=== PATIENT | female | born 1945 | race Caucasian/White ===

== ENCOUNTER → 2016-11-19 | Outpatient (REF) | payer MEDICARE, OTHER | LOC: M SFHCLERA 08:52 | PROVIDERS: ATTEND Physician Assistant | DX: I10 Essential (primary) hypertension (principal); E78.2 Mixed hyperlipidemia; E03.9 Hypothyroidism, unspecified; E55.9 Vitamin D deficiency, unspecified ==

== ENCOUNTER → 2016-11-25 | Outpatient (REF) | payer MEDICARE, OTHER ==
[2016-11-25 11:58] LABS: MEAN CORPUSCULAR HEMOGLOBIN 31.3 pg (27.0-33.0); MEAN CORPUSCULAR HGB CONC 33.7 g/dl (32.0-36.5); MEAN CORPUSCULAR VOLUME 92.9 fl (80.0-96.0); RED CELL DISTRIBUTION WIDTH 12.3 % (11.5-14.5); WHITE BLOOD COUNT 6.4 K/mm3 (4.0-10.0)
[2016-11-25 12:28] LABS: ALBUMIN 3.8 GM/DL (3.2-5.2); ALBUMIN/GLOBULIN RATIO 1.27 (1.00-1.93); ALKALINE PHOSPHATASE 81 U/L (45-117); ALT/SGPT 31 U/L (12-78); ANION GAP 5 MEQ/L (8-16); AST/SGOT 24 U/L (15-37); BILIRUBIN,TOTAL 0.9 MG/DL (0.2-1.0); BLOOD UREA NITROGEN 20 MG/DL (7-18); CALCIUM LEVEL 9.2 MG/DL (8.8-10.2); CARBON DIOXIDE LEVEL 31 MEQ/L (21-32); CHLORIDE LEVEL 104 MEQ/L (98-107); CHOLESTEROL LEVEL 146 MG/DL (<200); CREATININE FOR GFR 0.74 MG/DL (0.55-1.02); GLOMERULAR FILTRATION RATE > 60.0 (>39); GLUCOSE, FASTING 100 MG/DL (83-110); SODIUM LEVEL 140 MEQ/L (136-145); TOTAL PROTEIN 6.8 GM/DL (6.4-8.2); TRIGLYCERIDES LEVEL 84 MG/DL (<150)
== END ==
LOC: M SFHCLERA 07:54
PROVIDERS: ATTEND Physician Assistant
DX: E78.2 Mixed hyperlipidemia (principal); I10 Essential (primary) hypertension; E03.9 Hypothyroidism, unspecified; E55.9 Vitamin D deficiency, unspecified

== ENCOUNTER → 2017-05-12 | Outpatient (REF) | payer MEDICARE, OTHER ==
[2017-05-12 11:38] LABS: ALBUMIN/GLOBULIN RATIO 1.18 (1.00-1.93); ALKALINE PHOSPHATASE 85 U/L (45-117); ALT/SGPT 26 U/L (12-78); ANION GAP 8 MEQ/L (8-16); AST/SGOT 18 U/L (7-37); BILIRUBIN,TOTAL 1.2 MG/DL (0.2-1.0); BLOOD UREA NITROGEN 17 MG/DL (7-18); CALCIUM LEVEL 9.1 MG/DL (8.8-10.2); CARBON DIOXIDE LEVEL 29 MEQ/L (21-32); CHLORIDE LEVEL 103 MEQ/L (98-107); CHOLESTEROL LEVEL 160 MG/DL (<200); CREATININE FOR GFR 0.74 MG/DL (0.55-1.02); GLOMERULAR FILTRATION RATE > 60.0 (>39); GLUCOSE, FASTING 113 MG/DL (83-110); POTASSIUM SERUM 4.3 MEQ/L (3.5-5.1); SODIUM LEVEL 140 MEQ/L (136-145); TOTAL PROTEIN 7.4 GM/DL (6.4-8.2); TRIGLYCERIDES LEVEL 93 MG/DL (<150)
== END ==
LOC: M SFHCLERA 09:30
PROVIDERS: ATTEND Physician Assistant
DX: E78.2 Mixed hyperlipidemia (principal); I10 Essential (primary) hypertension; E03.9 Hypothyroidism, unspecified

== ENCOUNTER → 2017-06-23 | Outpatient (REF) | payer MEDICARE, OTHER | LOC: M SFHCLERA 09:53 | DX: E03.9 Hypothyroidism, unspecified (principal) | CPT/HCPCS: 84443 ==

== ENCOUNTER → 2017-11-23 | Outpatient (REF) | payer MEDICARE, OTHER | LOC: M SFHCLERA 08:13 | DX: E03.9 Hypothyroidism, unspecified (principal) | CPT/HCPCS: 84443 ==

== ENCOUNTER → 2018-01-14 | Outpatient (REF) | payer MEDICARE, OTHER ==
[2018-01-14 17:30] LABS: ALBUMIN 3.8 GM/DL (3.2-5.2); ALBUMIN/GLOBULIN RATIO 1.09 (1.00-1.93); ALKALINE PHOSPHATASE 79 U/L (45-117); ALT/SGPT 22 U/L (12-78); ANION GAP 6 MEQ/L (8-16); AST/SGOT 18 U/L (7-37); BILIRUBIN,TOTAL 0.9 MG/DL (0.2-1.0); BLOOD UREA NITROGEN 15 MG/DL (7-18); CALCIUM LEVEL 8.9 MG/DL (8.8-10.2); CARBON DIOXIDE LEVEL 30 MEQ/L (21-32); CHLORIDE LEVEL 102 MEQ/L (98-107); CHOLESTEROL LEVEL 136 MG/DL (<200); CHOLESTEROL RISK RATIO 2.158 (<5); CREATININE FOR GFR 0.78 MG/DL (0.55-1.30); FREE T4 1.42 NG/DL (0.76-1.46); GLOMERULAR FILTRATION RATE > 60.0 (>39); GLUCOSE, FASTING 99 MG/DL (70-100); HDL CHOLESTEROL 63 MG/DL (>40); LDL CHOLESTEROL 51.2 MG/DL (<100); NON-HDL-C 73 MG/DL; POTASSIUM SERUM 4.2 MEQ/L (3.5-5.1); SODIUM LEVEL 138 MEQ/L (136-145); TOTAL PROTEIN 7.3 GM/DL (6.4-8.2); TRIGLYCERIDES LEVEL 109 MG/DL (<150)
== END ==
LOC: M SFHCLUC 16:09
DX: E78.2 Mixed hyperlipidemia (principal); E03.9 Hypothyroidism, unspecified
CPT/HCPCS: 84443

== ENCOUNTER → 2018-04-18 | Outpatient (CLI) | payer MEDICARE, OTHER | LOC: M RAD 07:44 | DX: R41.3 Other amnesia (principal); I67.81 Acute cerebrovascular insufficiency; G31.9 Degenerative disease of nervous system, unspecified | CPT/HCPCS: 70551 ==

== ENCOUNTER → 2018-05-03 | Outpatient (REF) | payer MEDICARE, OTHER ==
[2018-05-03 12:29] LABS: FREE T4 1.82 NG/DL (0.76-1.46); THYROID STIMULATING HORMONE 0.567 uIU/ML (0.358-3.740)
[2018-05-03 12:55] LABS: VITAMIN B12 LEVEL 466 PG/ML (247-911)
== END ==
LOC: M SFHCLERA 09:45
DX: E03.9 Hypothyroidism, unspecified (principal)
CPT/HCPCS: 84443

== ENCOUNTER → 2018-07-14 | Outpatient (CLI) | payer MEDICARE, OTHER ==
[2018-07-14 16:48] LABS: BASO # 0.1 10^3/uL (0.0-0.2); BASO % 0.9 % (0.0-1.0); EOS # 0.1 10^3/uL (0.0-0.50); EOS % 1.6 % (0.0-3.0); HEMATOCRIT 43.5 % (36.0-47.0); HEMOGLOBIN 14.4 g/dl (12.0-15.5); LYMPH # 2.3 10^3/uL (1.5-4.5); MEAN CORPUSCULAR HEMOGLOBIN 30.3 pg (27.0-33.0); MEAN CORPUSCULAR HGB CONC 33.1 g/dl (32.0-36.5); MEAN CORPUSCULAR VOLUME 91.4 fl (80.0-96.0); MONO # 0.7 10^3/uL (0.0-0.8); MONO % 10.6 % (0.0-5.0); NEUTROPHILS # 3.6 10^3/uL (1.8-7.7); NEUTROPHILS % 52.3 % (36.0-66.0); PLATELET COUNT, AUTOMATED 224 10^3/uL (150-450); RED BLOOD COUNT 4.76 10^6/uL (4.00-5.40); WHITE BLOOD COUNT 6.8 10^3/uL (4.0-10.0)
[2018-07-14 17:02] LABS: ALT/SGPT 19 U/L (12-78); BLOOD UREA NITROGEN 18 MG/DL (7-18); CALCIUM LEVEL 9.5 MG/DL (8.8-10.2); CARBON DIOXIDE LEVEL 29 MEQ/L (21-32); CHLORIDE LEVEL 102 MEQ/L (98-107); CREATININE FOR GFR 0.66 MG/DL (0.55-1.30); GLOMERULAR FILTRATION RATE > 60.0 (>39); GLUCOSE, FASTING 111 MG/DL (70-100); POTASSIUM SERUM 4.3 MEQ/L (3.5-5.1); RHEUMATOID FACTOR QUANT < 10.0 IU/ML (<15.0); SODIUM LEVEL 139 MEQ/L (136-145); THYROID STIMULATING HORMONE 0.054 uIU/ML (0.358-3.740)
[2018-07-14 17:31] LABS: ERYTHROCYTE SEDIMENTATION RATE 9 mm/hr (0-30)
[2018-07-14 18:16] LABS: FOLATE 9.6 NG/ML (>5.4); VITAMIN B12 LEVEL 550 PG/ML (247-911)
[2018-07-20 07:00] LABS: ALBUMIN 4.08 GM/DL (3.29-5.55); ALBUMIN % 58.3 % (55.8-66.1); ALPHA-1-GLOBULIN % 4.2 % (2.9-4.9); ALPHA-1-GLOBULINS 0.29 GM/DL (0.17-0.41); ALPHA-2-GLOBULINS 0.75 GM/DL (0.42-0.99); ALPHA-2-GLOBULINS % 10.7 % (7.1-11.8); BETA-1-GLOBULINS 0.41 GM/DL (0.28-0.60); BETA-1-GLOBULINS % 5.9 % (4.7-7.2); BETA-2-GLOBULINS 0.38 GM/DL (0.19-0.55); BETA-2-GLOBULINS % 5.4 % (3.2-6.5); GAMMA GLOBULIN % 15.5 % (11.1-18.8); GAMMA GLOBULINS 1.09 GM/DL (0.65-1.58)
[2018-07-20 19:10] LABS: ANTINUCLEAR ANTIBODIES DIRECT Negative (Negative); VITAMIN B1 LEVEL WHOLE BLOOD 111.1 nmol/L (66.5-200.0); VITAMIN B6,PYRIDOXAL PHOSPHATE 12.5 ug/L (2.0-32.8); VITAMIN E(ALPHA TOCOPHEROL) 11.4 mg/L (9.0-29.0)
== END ==
LOC: M LRY 10:37
PROVIDERS: ATTEND Physician Assistant Medical
DX: G31.84 Mild cognitive impairment of uncertain or unknown etiology (principal)

== ENCOUNTER → 2018-09-19 | Outpatient (REF) | payer MEDICARE, OTHER ==
[2018-09-19 13:20] LABS: FREE T4 1.65 NG/DL (0.76-1.46); THYROID STIMULATING HORMONE 0.112 uIU/ML (0.358-3.740)
== END ==
LOC: M SFHCLERA 10:06
PROVIDERS: ATTEND Nurse Practitioner Family
DX: E03.9 Hypothyroidism, unspecified (principal)

== ENCOUNTER 2018-12-21 07:28 | Emergency (ER) | payer MEDICARE, OTHER ==
[~2018-12-21] VITALS: Ht 157.5 cm; Wt 63.2 kg
[2018-12-21] MEDS ORDERED: DONE5TAB82 PO (07:35)
[2018-12-21] MEDS ORDERED: CARV6.25 PO (07:35)
[2018-12-21] MEDS ORDERED: LEVO75TA4 PO (07:35)
[2018-12-21] MEDS ORDERED: CRES5TAB PO (07:35)
--- NOTE | 2018-12-21 09:22 | REP ---
RIGHT ANKLE, FOUR VIEWS: Four views of the right ankle are performed. There is a nondisplaced oblique fracture of the distal fibula. The adjacent tibia appears intact. The ankle mortise is intact. There is mild posterior and moderate inferior calcaneal spurring. IMPRESSION: Nondisplaced fracture distal fibula. Electronically Signed by Michael Wong MD 12/21/2018 10:11 A
--- NOTE | 2018-12-21 09:23 | REP ---
RIGHT LOWER LEG, AP AND LATERAL: AP and lateral views of the right lower leg performed. There is a nondisplaced oblique fracture of the distal fibula. No other acute fracture or dislocation is seen. IMPRESSION: Nondisplaced fracture distal fibula. Electronically Signed by Michael Wong MD 12/21/2018 10:11 A
--- NOTE | 2018-12-21 10:02 | REP ---
Right knee five views : There is no fracture or dislocation. Mineralization and joint spaces are normal. There are no calcifications or foreign bodies. There is a small suprapatellar effusion. Impression: Small suprapatellar effusion, otherwise, negative right knee. Electronically Signed by Michael Woo MD 12/21/2018 09:54 A
[2018-12-21 10:56] VITALS: BP 154/96
== END 2018-12-21 11:49 | disposition home or self-care (01) ==
LOC: M ED 07:28
DX: S82.831A Other fracture of upper and lower end of right fibula, initial encounter for closed fracture (principal); M25.48 Effusion, other site; W19.XXXA Unspecified fall, initial encounter; Y92.511 Restaurant or cafe as the place of occurrence of the external cause; Y93.89 Activity, other specified; Y99.9 Unspecified external cause status; I10 Essential (primary) hypertension; E78.5 Hyperlipidemia, unspecified; E03.9 Hypothyroidism, unspecified; M41.9 Scoliosis, unspecified; G31.84 Mild cognitive impairment of uncertain or unknown etiology; Z79.899 Other long term (current) drug therapy

== ENCOUNTER → 2019-02-02 | Outpatient (REF) | payer MEDICARE, OTHER ==
[~2019-02-02] MED LIST: CARV6.25 PO; CRES5TAB PO; DONE5TAB82 PO; LEVO75TA4 PO
== END ==
LOC: M SFHCLERA 08:01
PROVIDERS: ATTEND Nurse Practitioner Family
DX: E03.9 Hypothyroidism, unspecified (principal)

== ENCOUNTER → 2019-08-14 | Outpatient (REF) | payer MEDICARE, OTHER ==
[2019-08-14 11:25] LABS: BASO # 0.1 10^3/uL (0.0-0.2); BASO % 1.2 % (0.0-1.0); EOS # 0.2 10^3/uL (0.0-0.5); EOS % 2.7 % (0.0-3.0); HEMOGLOBIN 13.9 g/dl (12.0-15.5); LYMPH # 2.3 10^3/uL (1.5-5.0); LYMPH % 34.9 % (24.0-44.0); MEAN CORPUSCULAR HEMOGLOBIN 30.9 pg (27.0-33.0); MEAN CORPUSCULAR HGB CONC 33.1 g/dl (32.0-36.5); MEAN CORPUSCULAR VOLUME 93.3 fl (80.0-96.0); MONO # 0.9 10^3/uL (0.0-0.8); MONO % 13.3 % (0.0-5.0); NEUTROPHILS # 3.2 10^3/uL (1.5-8.5); NEUTROPHILS % 47.6 % (36.0-66.0); PLATELET COUNT, AUTOMATED 199 10^3/uL (150-450); WHITE BLOOD COUNT 6.7 10^3/uL (4.0-10.0)
[2019-08-14 11:40] LABS: ALBUMIN 3.6 GM/DL (3.2-5.2); ALT/SGPT 15 U/L (12-78); BILIRUBIN,TOTAL 1.1 MG/DL (0.2-1.0); BLOOD UREA NITROGEN 25 MG/DL (7-18); CALCIUM LEVEL 9.2 MG/DL (8.8-10.2); CARBON DIOXIDE LEVEL 30 MEQ/L (21-32); CHLORIDE LEVEL 102 MEQ/L (98-107); CHOLESTEROL LEVEL 175 MG/DL (<200); CHOLESTEROL RISK RATIO 2.536 (<5); CREATININE FOR GFR 0.81 MG/DL (0.55-1.30); FREE T4 1.36 NG/DL (0.76-1.46); GLOMERULAR FILTRATION RATE > 60.0 (>39); GLUCOSE, FASTING 93 MG/DL (70-100); HDL CHOLESTEROL 69 MG/DL (>40); LDL CHOLESTEROL 89 MG/DL (<100); NON-HDL-C 106 MG/DL; POTASSIUM SERUM 4.3 MEQ/L (3.5-5.1); SODIUM LEVEL 137 MEQ/L (136-145); TOTAL PROTEIN 7.1 GM/DL (6.4-8.2); TRIGLYCERIDES LEVEL 86 MG/DL (<150)
== END ==
LOC: M SFHCLERA 08:49
PROVIDERS: ATTEND Nurse Practitioner Family
DX: I10 Essential (primary) hypertension (principal); E03.9 Hypothyroidism, unspecified; E78.2 Mixed hyperlipidemia
CPT/HCPCS: 80053; 80061; 84439; 84443; 85025; G0463

== ENCOUNTER → 2020-01-10 | Outpatient (REF) | payer MEDICARE, OTHER ==
[2020-03-10 06:51] LABS: FREE T4 1.62 NG/DL (0.76-1.46); THYROID STIMULATING HORMONE 1.21 uIU/ML (0.358-3.740)
== END ==
LOC: M SFHCLERA 16:24
PROVIDERS: ATTEND Family Medicine
DX: E03.9 Hypothyroidism, unspecified (principal)

== ENCOUNTER 2020-03-02 10:42 | Emergency (ER) | payer MEDICARE, OTHER ==
[~2020-03-02] VITALS: Ht 157.5 cm; Wt 65.8 kg
[2020-03-02 10:43] VITALS: BP 179/86
--- NOTE | 2020-03-02 13:24 | REPVR ---
PROCEDURE INFORMATION: Exam: US Duplex Left Lower Extremity Veins, Limited Exam date and time: 03/02/2020 12:56 PM Age: 74 years old Clinical indication: Pain; Leg, lower; Left; Additional info: Swelling/pain TECHNIQUE: Imaging protocol: Real-time Duplex ultrasound of the Left Lower Extremity with 2-D niño scale, color Doppler flow and spectral waveform analysis with image documentation. Limited exam focused on the left lower extremity veins. COMPARISON: No relevant prior studies available. FINDINGS: Left deep veins: Unremarkable. The common femoral, femoral, proximal profunda femoral and popliteal veins are patent without thrombus. Normal Doppler waveforms. Normal compressibility and/or augmentation response. Left superficial veins: Unremarkable. Saphenofemoral junction is patent without thrombus. Soft tissues: Unremarkable. IMPRESSION: No evidence of deep vein thrombosis. Electronically signed by: Marco A Reed On 03/02/2020 13:23:56 PM
== END 2020-03-02 13:54 | disposition home or self-care (01) ==
LOC: M ED 10:42
DX: S76.112A Strain of left quadriceps muscle, fascia and tendon, initial encounter (principal); X58.XXXA Exposure to other specified factors, initial encounter; Y92.9 Unspecified place or not applicable; Y93.9 Activity, unspecified; Y99.9 Unspecified external cause status; I10 Essential (primary) hypertension; E78.5 Hyperlipidemia, unspecified; E03.9 Hypothyroidism, unspecified; M41.9 Scoliosis, unspecified; F03.90 Unspecified dementia, unspecified severity, without behavioral disturbance, psychotic disturbance, mood disturbance, and anxiety; Z79.899 Other long term (current) drug therapy

== ENCOUNTER → 2020-06-18 | Outpatient (CLI) | payer MEDICARE, OTHER ==
[~2020-06-18] MED LIST changes: +CHLO125TA PO; +DONE10TA90 PO; +DOXY100C37 PO; +LISI20TA33 PO; +PRED20TA PO
--- NOTE | 2020-06-18 09:12 | REP ---
INDICATION: DEMENTIA EKG 1ST CT 2ND. COMPARISON: Comparison MRI study is from April 18, 2018.. TECHNIQUE: Helical scanning is acquired. 5 mm axial images were reformatted. Coronal MPR images were generated. FINDINGS: Bone window settings demonstrate an intact bony calvarium. There is no evidence of skull fracture or incidental bony calvarial lesion. The visualized paranasal sinuses appear clear. No intraorbital abnormality is seen. On soft tissue window setting images; the lateral, third, and fourth ventricles are normal in size and position. Wong-white differentiation pattern is normal above and below the tentorium. There are is no evidence of intracranial hemorrhage. No mass, edema, infarction, or midline shift is seen. No extra-axial fluid collection is appreciated. There is mild to moderate generalized volume loss. Vascular calcification is observed at the skull base. Physiologic calcification is seen in the basal ganglia. IMPRESSION: Generalized volume loss and vascular calcification. No acute intracranial abnormality.. <Electronically signed by Tayo Oseguera > 06/18/20 0908
--- NOTE | 2020-06-18 11:04 | ECGEPIP ---
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 : 1945 Requested By: Kaykay Lopez Order Number: [id number] Reading MD: Sara Fountain Measurements Intervals Newton Rate: 50 P: 59 NC: 167 QRS: 42 QRSD: 132 T: 52 QT: 448 QTc: 411 Interpretive Statements SINUS BRADYCARDIA WITH SINUS ARRHYTHMIA POSSIBLE LEFT ATRIAL ENLARGEMENT INTRAVENTRICULAR CONDUCTION DELAY IRBBB ANT STTWAVE ABN //MILD ST ELEV AVF NO PRIOR Electronically Signed on 06-18-2020 11:04:18 EST by Sara Fountain
== END ==
LOC: M EKG 08:31
PROVIDERS: ATTEND Psychiatry & Neurology Neurology
DX: F03.90 Unspecified dementia, unspecified severity, without behavioral disturbance, psychotic disturbance, mood disturbance, and anxiety (principal)

== ENCOUNTER 2020-07-01 10:01 | Emergency (ER) | payer MEDICARE, OTHER ==
[~2020-07-01] VITALS: Ht 157.5 cm; Wt 70.5 kg
[~2020-07-01 10:01] MED LIST changes: -CHLO125TA PO; -DONE10TA90 PO; -DOXY100C37 PO; -LISI-538 PO; -PRED20TA PO
--- OUTSIDE RECORDS SUMMARY | 2020-07-01 10:35 | CCD ---
Author Author [facility] Organization [facility] Address Unknown Phone Unavailable Care Team Providers Care Binder Cutter Name Role Phone Shaunna Reilly Unavailable PROBLEMS Type Condition ICD9-CM Code [id number] Code Onset Dates Condition S tatus SNOMED Code Notes Problem Mixed hyperlipidemia E78.2 Active 354216520 Problem Vitamin D deficiency E55.9 Active 35246945 Problem Essential hypertension I10 Active 72215541 Problem Obstructive sleep apnea of adult G47.33 Active 1368538880409 Problem Acquired hypothyroidism E03.9 Active 93917280 2 Problem Memory problem R41.3 Active 374539073 Problem PFO (patent foramen ovale) Q21.1 Active 53397 7008 Problem Scoliosis (and kyphoscoliosis), idiopathic M41.20 Active 23821565 Problem Aortic valve sclerosis I35.8 Active 28836506 Problem Obstructive sleep apnea G47.33 Active 60934540 ALLERGIES No Known Allergies ENCOUNTERS from 1945 to 2020-04-08 Encounter Location Date Provider Diagnosis [facility] [address] [place] [address] Mar, Shaunna Reilly Essential hypertension I10 IMMUNIZATIONS Vaccine Route Administration Date Status Influenza (Pharmacy Given) Unknown Jan 20, 2019 Admin istered Influenza (High Dose 65 & up) Unknown Feb 19, 2017 Ad ministered Pneumococcal Adult 0.5mL (Pneumovax 23) IM Intramuscular Mar 01, 2014 Administered TDAP IM Intramuscular Mar 01, 2014 Administered Pneumococcal 0.5mL (Prevnar 13) IM Intramuscular May 08, 2015 Administered Influenza (6mo & up) Fluzone IM Intramuscular Mar 20, 2015 Ad ministered Influenza (6mo & up) Fluzone Unknown Mar 01, 2014 Adm inistered SOCIAL HISTORY Tobacco Use: Social History Observation Description Date Details (start date - stop date) Never Smoker Sex Assigned At : Social History Observation Description Sex Assigned At Unknown Education: Question Answer Notes Level of Education: High School Language: Question Answer Notes Languages spoken: Brazilian Christianity: Question Answer Notes Christianity 33 None Alcohol Screening: Question Answer Notes Did you have a drink containing alcohol in the past year? No Points 0 Interpretation Negative BMI Care Goal Follow-Up Question Answer Notes Above Normal BMI Follow-Up Dietary management educatio n, guidance, and counseling, Dietary needs education Tobacco Use: Question Answer Notes Are you a: never smoker REASON FOR REFERRAL No Information VITAL SIGNS No information MEDICATIONS Medication SIG (Take, Route, Frequency, Duration) Start Date En d Date Status Vitamin D3 2000 UNIT 1 capsule Orally Once a day Not-Taking Rosuvastatin Calcium 5 MG 1 tablet Orally Once a day for 90 day( s) Mar, Not-Taking Carvedilol 6.25 MG TAKE 1 TABLET TWICE A DAY FOR HYPERTENSION Active Chlorthalidone 25 mg 1/2 Orally Once a day for 90 Active Lisinopril 20 MG 1 tablet for hypertension Orally once daily for 90 day(s) Active Carvedilol 6.25mg 1 tab for hypertension oral twice daily for 90 da ys Not-Taking Crestor 5 MG 1 tablet Orally Once a day, DISPENSE WRITTEN for 90 days Apr, Active Levothyroxine Sodium 75 MCG 1 tablet on an empty stoma ch in the morning Orally- CAMMY Once a day for 90 days Jul, Active PROCEDURES No Information RESULTS No Results REASON FOR VISIT med refill MEDICAL (GENERAL) HISTORY Type Description Date Medical History hyperlipidemia Medical History hypertension Medical History osteoporosis Medical History hypothyroidism Medical History scoliosis Medical History ZANDRA Surgical History back surgery 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 Mendoza) 05/07 Goals Section No Information Health Concerns No Information MEDICAL EQUIPMENT No Information MENTAL STATUS No Information FUNCTIONAL STATUS No Information ASSESSMENTS Encounter Date Diagnosis Notes Mar, Essential hypertension (ICD-10 - I10) PLAN OF TREATMENT Medication Medication Name Sig Start Date Stop Date Crestor 5 MG 1 tablet Orally Once a day, DISPENSE WRITTEN for 90 days Apr, Lisinopril 20 MG 1 tablet for hypertension Orally once daily for 90 day(s) Chlorthalidone 25 mg 1/2 Orally Once a day for 90 Levothyroxine Sodium 75 MCG 1 tablet on an empty stoma ch in the morning Orally- CAMMY Once a day for 90 days Jul, Insurance Providers Payer Name Payer Address Payer Phone Insured Name Patient Relati onship to Insured Coverage Start Date Coverage End Date [facility] [address] [address] [facility] [phone] FRANKY MONTAGUE MEDICARE Part A and B [address] [facility] [id number] FRANKY MONTAGUE
--- OUTSIDE RECORDS SUMMARY | 2020-07-01 10:35 | CCD ---
Author Author [facility] Organization [facility] Address Unknown Phone Unavailable Care Team Providers Care Liquor Rectifier Name Role Phone Shaunna Reilly Unavailable PROBLEMS Type Condition ICD9-CM Code [id number] Code Onset Dates Condition S tatus SNOMED Code Notes Problem Mixed hyperlipidemia E78.2 Active 022323065 Problem Vitamin D deficiency E55.9 Active 86048161 Problem Essential hypertension I10 Active 87232783 Problem Obstructive sleep apnea of adult G47.33 Active 8142342069071 Problem Acquired hypothyroidism E03.9 Active 26498413 2 Problem Memory problem R41.3 Active 810457749 Problem PFO (patent foramen ovale) Q21.1 Active 43127 7008 Problem Scoliosis (and kyphoscoliosis), idiopathic M41.20 Active 69468761 Problem Aortic valve sclerosis I35.8 Active 58203276 Problem Obstructive sleep apnea G47.33 Active 80971684 ALLERGIES No Known Allergies ENCOUNTERS from 1945 to 2020-05-02 Encounter Location Date Provider Diagnosis [facility] [address] [place] [address] Apr, Shaunna Reilly IMMUNIZATIONS Vaccine Route Administration Date Status Influenza [...] School Language: Question Answer Notes Languages spoken: Liberian Scientologist: Question Answer Notes Scientologist 33 None Alcohol Screening: Question Answer Notes [...] MEDICATIONS Medication SIG (Take, Route, Frequency, Duration) Notes Start Da te End Date Status Vitamin D3 2000 UNIT 1 capsule Orally Once a day Not-Taking Carvedilol 6.25 MG TAKE 1 TABLET TWICE A DAY FOR HYPERTENSION Active Crestor 5 MG 1 tablet Orally Once a day, DISPENSE WRITTEN for 90 days Apr, Active Chlorthalidone 25 mg 1/2 Orally Once a day for 90 Active Lisinopril 20 MG 1 tablet for hypertension Orally once daily for 90 day(s) Active Carvedilol 6.25mg 1 tab for hypertension oral twice daily for 90 days Not-Taking Levothyroxine Sodium 75 MCG 1 tablet on an empty stoma ch in the morning Orally- CAMMY Once a day for 90 days Jul, Activ e Rosuvastatin Calcium 5 MG 1 tablet Orally Once a day for 90 day( s) Mar, Not-Taking PROCEDURES No Information RESULTS No Results REASON FOR VISIT No Information MEDICAL (GENERAL) HISTORY Type Description Date Medical [...] No Information FUNCTIONAL STATUS No Information ASSESSMENTS No Information PLAN OF TREATMENT Medication Medication Name Sig Start Date Stop Date Levothyroxine Sodium 75 MCG 1 tablet on an empty stoma ch in the morning Orally- CAMMY Once a day for 90 days Jul, Lisinopril 20 MG 1 tablet for hypertension Orally once daily for 90 day(s) Chlorthalidone 25 mg 1/2 Orally Once a day for 90 Crestor 5 MG 1 tablet Orally Once a day, DISPENSE WRITTEN for 90 days Apr, Insurance Providers Payer Name Payer Address Payer Phone Insured Name Patient Relati onship to Insured Coverage Start Date Coverage End Date MEDICARE Part A and B [address] [facility] [phone] FRANKY MONTAGUE [facility] [address] [id number] [facility] [phone] FRANKY MONTAGUE self
--- OUTSIDE RECORDS SUMMARY | 2020-07-01 10:35 | CCD ---
Author Author [facility] Organization [facility] Address Unknown Phone Unavailable Care Team Providers Care Agricultural Mechanic Name Role Phone Shaunna Reilly Unavailable PROBLEMS Type Condition ICD9-CM Code OGL81-KA Code Onset Dates Condition S tatus SNOMED Code Notes Problem Mixed hyperlipidemia E78.2 Active 371562505 Problem Vitamin D deficiency E55.9 Active 69017594 Problem Essential hypertension I10 Active 10844290 Problem Obstructive sleep apnea of adult G47.33 Active 3492827723766 Problem Acquired hypothyroidism E03.9 Active 28422578 2 Problem Memory problem R41.3 Active 036325740 Problem PFO (patent foramen ovale) Q21.1 Active 58632 7008 Problem Scoliosis (and kyphoscoliosis), idiopathic M41.20 Active 98086426 Problem Aortic valve sclerosis I35.8 Active 80080120 Problem Obstructive sleep apnea G47.33 Active 66605672 ALLERGIES No Known Allergies ENCOUNTERS from 1945 to 2020-05-06 Encounter Location Date Provider Diagnosis [facility] [address] [place] [address] Apr, Shaunna Reilly IMMUNIZATIONS Vaccine Route Administration [...] School Language: Question Answer Notes Languages spoken: Mosotho Yazidism: Question Answer Notes Yazidism 33 None Alcohol Screening: Question Answer Notes [...] Notes Start Da te End Date Status Carvedilol 6.25mg 1 tab for hypertension oral twice daily for 90 days Not-Taking Carvedilol 6.25 MG TAKE 1 TABLET TWICE A DAY FOR HYPERTENSION Active Crestor 5 MG 1 tablet Orally Once a day, DISPENSE WRITTEN for 90 days Apr, Active Chlorthalidone 25 mg 1/2 Orally Once a day for 90 Active Vitamin D3 2000 UNIT 1 capsule Orally Once a day Not-Taking Levothyroxine Sodium 75 MCG 1 tablet on an empty stoma ch in the morning Orally- CAMMY Once a day for 90 days Jul, Activ e Lisinopril 20 MG 1 tablet for hypertension Orally once daily for 90 day(s) Active Rosuvastatin Calcium 5 MG 1 tablet Orally Once a day for 90 day( s) Mar, Not-Taking PROCEDURES No Information RESULTS No Results REASON FOR VISIT REFILL MEDICAL (GENERAL) HISTORY Type Description Date Medical [...] Medication Name Sig Start Date Stop Date Lisinopril 20 MG 1 tablet for hypertension Orally once daily for 90 day(s) Levothyroxine Sodium 75 MCG 1 tablet on an empty stoma ch in the morning Orally- CAMMY Once a day for 90 days Jul, Chlorthalidone 25 mg 1/2 Orally Once a day for 90 Crestor 5 MG 1 tablet Orally Once a day, DISPENSE WRITTEN for 90 days Apr, Insurance Providers Payer Name Payer Address Payer Phone Insured Name Patient Relati onship to Insured Coverage Start Date Coverage End Date MEDICARE Part A and B [address] [facility] [phone] FRANKY MONTAGUE [facility] [address] [id number] [facility] [phone] FRANKY MONTAGUE self
--- OUTSIDE RECORDS SUMMARY | 2020-07-01 10:35 | CCD ---
Author Author [facility] Organization [facility] Address Unknown Phone Unavailable Care Team Providers Care Sterile Technician Name Role Phone Tommie Shaunna Unavailable PROBLEMS Type Condition ICD9-CM Code [id number] Code Onset Dates Condition S tatus SNOMED Code Notes Problem Mixed hyperlipidemia E78.2 Active 873177840 Problem Vitamin D deficiency E55.9 Active 70606554 Problem Essential hypertension I10 Active 61823604 Problem Obstructive sleep apnea of adult G47.33 Active 3070735717929 Problem Acquired hypothyroidism E03.9 Active 70495857 2 Problem Memory problem R41.3 Active 032072839 Problem PFO (patent foramen ovale) Q21.1 Active 65147 7008 Problem Scoliosis (and kyphoscoliosis), idiopathic M41.20 Active 87745625 Problem Aortic valve sclerosis I35.8 Active 67458226 Problem Obstructive sleep apnea G47.33 Active 29000640 ALLERGIES No Known Allergies ENCOUNTERS from 1945 to 2020-06-22 Encounter Location Date Provider Diagnosis [facility] [address] [place] [address] May, Shaunna Reilly Mixed hyperlipidemia E78.2 and Essential hypertension I10 IMMUNIZATIONS Vaccine Route Administration [...] School Language: Question Answer Notes Languages spoken: Czech Rastafarian: Question Answer Notes Rastafarian 33 None Alcohol Screening: Question Answer Notes [...] Notes Start Da te End Date Status Crestor 5 MG 1 tablet Orally Once a day, DISPENSE WRITTEN for 90 days Apr, Active Vitamin D3 2000 UNIT 1 capsule Orally Once a day Not-Taking Carvedilol 6.25mg 1 tab for hypertension oral twice daily for 90 days Not-Taking Rosuvastatin Calcium 5 MG 1 tablet Orally Once a day for 90 day( s) Mar, Not-Taking Levothyroxine Sodium 75 MCG 1 tablet on an empty stoma ch in the morning Orally- CAMMY Once a day for 90 days Jul, Activ e Lisinopril 20 MG 1 tablet for hypertension Orally once daily for 90 day(s) Active Chlorthalidone 25 mg 1/2 Orally Once a day for 90 Active Carvedilol 6.25 MG TAKE 1 TABLET TWICE A DAY FOR HYPERTENSION Active PROCEDURES No Information RESULTS No Results REASON FOR VISIT refill MEDICAL (GENERAL) HISTORY Type Description Date [...] STATUS No Information ASSESSMENTS Encounter Date Diagnosis Assessment Notes Treatment Notes Treatm ent Clinical Notes May, Mixed hyperlipidemia (ICD-10 - E78.2) May, Essential hypertension (ICD-10 - I10) PLAN OF [...] Part A and B [address] [facility] [phone] FRANKY MONTAGUE [facility] [address] [id number] [facility] [phone] FRANKY MONTAGUE
--- OUTSIDE RECORDS SUMMARY | 2020-07-01 10:35 | CCD ---
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 Name Role Phone Jessica Valle MD Unavailable [phone] Malek, Jessica Mccracken MD Unavailable [phone] Malek, Jessica Mccracken MD Unavailable [phone] Malek, Jessica Mccracken MD Unavailable [phone] Malek, Jessica Mccracken MD Unavailable [phone] Malek, Jessica Mccracken MD Unavailable [phone] Malek, Jessica Mccracken MD Unavailable [phone] Malek, Jessica Mccracken MD Unavailable [phone] Malek, Jessica Mccracken MD Unavailable [phone] Malek, Jessica Mccracken MD Unavailable [phone] Malek, Jessica Mccracken MD Unavailable [phone] Malek, Jessica Mccracken MD Unavailable [phone] Malek, Jessica Mccracken MD Unavailable [phone] Malek, Jessica Mccracken MD Unavailable Unavailable Re-disclosure Warning The records that you are about to access may contain information from federally-assisted alcohol or drug abuse programs. If such information is present, then the following federally mandated warning applies: This information has been disclosed to you from records protected by federal confidentiality rules (42 CFR part 2). The federal rules prohibit you from making any further disclosure of this information unless further disclosure is expressly permitted by the written consent of the person to whom it pertains or as otherwise permitted by 42 CFR part 2. A general authorization for the release of medical or other information is NOT sufficient for this purpose. The Federal rules restrict any use of the information to criminally investigate or prosecute any alcohol or drug abuse patient.The records that you are about to access may contain highly sensitive health information, the redisclosure of which is protected by Article 27-F of the [facility] Public Health law. If you continue you may have access to information: Regarding HIV / AIDS; Provided by facilities licensed or operated by the [facility] Office of Mental Health; or Provided by the [facility] Office for People With Developmental Disabilities. If such information is present, then the following [facility] mandated warning applies: This information has been disclosed to you from confidential records which are protected by state law. State law prohibits you from making any further disclosure of this information without the specific written consent of the person to whom it pertains, or as otherwise permitted by law. Any unauthorized further disclosure in violation of state law may result in a fine or [place] health [place] sentence or both. A general authorization for the release of medical or other information is NOT sufficient authorization for further disc losure. Family History Family Member Name Family Member Gender Family Member Status Date o f Status Description Data Source(s) Unknown Male Problem MEDENT ([facility]) Unknown Female Unknown Male Problem [facility] ([facility]) Encounters Encounter Providers Location Date Indications Data Source(s ) Unknown [address] [facility] [address] 06/20/2020 12:00:00 AM EST eCW1 ([facility]) Outpatient Attender: Kaykay Valle MDAttender: Kaykay Valle MD CPSCAORT-CPSCANEU 06/06/2020 10:30:00 AM EST - 06/06/2020 10:31:00 AM EST F03.90 [facility] F03.90 Patient discharged. Unknown [address] [facility] [address] 05/01/2020 12:00:00 AM EST eCW1 ([facility]) [place] [address] [facility] [address] 05/01/2020 12:00:00 AM EST eCW1 ([facility]) [place] [address] [facility] [address] 04/08/2020 12:00:00 AM EST eCW1 ([facility]) [facility] [place] [address] [facility] [address] 02/15/2020 12:00:00 AM EDT eCW1 ([facility]) [place] [address] [facility] [address] 11/15/2019 12:00:00 AM EDT eCW1 ([facility]) [place] [address] [facility] [address] 11/13/2019 12:00:00 AM EDT eCW1 ([facility]) [place] [address] [facility] [address] 11/13/2019 12:00:00 AM EDT eCW1 ([facility]) [facility] [place] [address] [facility] [address] 10/26/2019 12:00:00 AM EDT eCW1 ([facility]) [facility] [place] [address] [facility] [address] 10/12/2019 12:00:00 AM EDT eCW1 ([facility]) [facility] [place] [address] [facility] [address] 09/08/2019 12:00:00 AM EDT eCW1 [facility] [address] [facility] [address] 08/14/2019 12:00:00 AM EDT eCW1 ([facility]) [facility] [place] [address] [facility] [address] 06/28/2019 12:00:00 AM EST eCW1 ([facility]) [facility] [place] [address] [facility] [address] 06/28/2019 12:00:00 AM EST eCW1 ([facility]) Immunizations Vaccine Date Status Description Data Source(s) COVID-19 VACCINE, MRNA-1273, LNP-S (MODERNA)/PF 06/26/2020 1 2:00:00 AM EST completed [facility] VARICELLA-ZOSTER VIRUS GLYCOPROTEIN E,REC/AS01B ADJUVA NT/PF 02/13/2020 12:00:00 AM EDT completed [facility] INFLUENZA VIRUS VACCINE QUADRIVAL SPLIT 2019-(65 YR UP)/PF 01/26/2020 12:00:00 AM EDT completed [facility] Medications Medication Brand Name Start Date Product Form Dose Route Admi nistrative Instructions Pharmacy Instructions Status Indications Reaction Description Data Source(s) 10 mg 06/11/2020 12:00:00 AM EST tablet 30 TAKE 1 TABLET BY MOUTH ONCE A DAY AT BEDTIME TAKE 1 TABLET BY MOUTH ONCE A DAY AT BEDTIME SOLD: 06/12/2020 [facility] carvedilol 6.25 MG Oral Tablet CARVEDILOL 02/10/2020 12:00:00 AM EDT tablet 180 TAKE ONE TABLET BY MOUTH TWICE A DAY TAKE ONE TABLET BY MOUT H TWICE A DAY SOLD: 05/13/2020 [facility] carvedilol 6.25 MG Oral Tablet CARVEDILOL 02/10/2020 12:00:00 AM EDT tablet 180 TAKE ONE TABLET BY MOUTH TWICE A DAY TAKE ONE TABLET BY MOUT H TWICE A DAY SOLD: 02/13/2020 [facility] carvedilol 6.25 MG Oral Tablet CARVEDILOL 01/18/2020 12:00:00 AM EDT tablet 30 TAKE ONE TABLET BY MOUTH TWICE A DAY TAKE ONE TABLET BY MOUT H TWICE A DAY SOLD: 01/19/2020 [facility] 5 mg 11/14/2019 12:00:00 AM EDT tablet 90 TAKE ONE TABLET BY MOUTH EVERY DAY TAKE ONE TABLET BY MOUTH EVERY DAY SOLD: 02/15/2020 [facility] 5 mg 11/14/2019 12:00:00 AM EDT tablet 90 TAKE ONE TABLET BY MOUTH EVERY DAY TAKE ONE TABLET BY MOUTH EVERY DAY SOLD: 11/15/2019 [facility] 75 mcg 10/27/2019 12:00:00 AM EDT tablet 90 TAKE 1 TABLET BY MOUTH ONCE A DAY IN THE MORNING TAKE 1 TABLET BY MOUTH ONCE A DAY IN THE MORNING SOLD: 10/28/2019 [facility] 75 mcg 10/27/2019 12:00:00 AM EDT tablet 90 TAKE 1 TABLET BY MOUTH ONCE A DAY IN THE MORNING TAKE 1 TABLET BY MOUTH ONCE A DAY IN THE MORNING SOLD: 05/01/2020 [facility] 20 mg 10/13/2019 12:00:00 AM EDT tablet 90 TAKE 1 TABLET BY MOUTH ONCE DAILY FOR HYPERTENSION TAKE 1 TABLET BY MOUTH ONCE DAILY FOR HYPERTENSION [facility] 75 mcg 06/29/2019 12:00:00 AM EST tablet 30 TAKE 1 TABLET BY MOUTH ONCE A DAY IN THE MORNING ON AN EMPTY STOMACH TAKE 1 TABLET BY MOUTH ONCE A DAY IN THE MORNING ON AN EMPTY STOMACH SOLD: 06/30/2019 [facility] 25 mg 02/08/2019 12:00:00 AM EDT tablet 45 TAKE ONE-HALF TABLET BY MOUTH EVERY DAY TAKE ONE-HALF TABLET BY MOUTH EVERY DAY SOLD: 07/06/2019 [facility] 5 mg 02/08/2019 12:00:00 AM EDT tablet 90 TAKE ONE TABLET BY MOUTH EVERY DAY TAKE ONE TABLET BY MOUTH EVERY DAY SOLD: 08/10/2019 [facility] Insurance Providers Payer name Policy type / Coverage type Policy ID Covered republican ID Covered republican's relationship to paige Policy Paige Plan Information R [facility] [id number] SP [id number] MEDICARE [id number] SP [id number] UMR [id number] S [id number] MEDICARE [id number] S [id number] UMR O [id number] S [id number] MEDICARE C [id number] S [id number] [id number] UMR [facility] [id number] SP [id number] MEDICARE [id number] SP [id number] A Umr (pr) Medigap Part B [id number] Self [id number] Medicare [place] Primary [id number] Self [id number] ANSI-Commercial [id number] ANSI-Medicare Part B [id number] ANSI-Commercial [id number] [facility] Commercial [id number] Self [id number] Medicare Part B Medicare Primary [id number] Self [id number] ANSI-Commercial [id number] ANSI-Medicare Part B [id number] ANSI-Commercial [id number] ANSI-Commercial [id number] ANSI-Medicare Part B [id number] ANSI-Commercial [id number] ANSI-Medicare Part B [id number] ANSI-Commercial [id number] ANSI-Commercial [id number] ANSI-Medicare Part B [id number] ANSI-Commercial [id number]-4l78-777m-[id number] ANSI-Commercial [id number]-[id number] MEDICARE [id number] A [facility] [id number] ANSI-Commercial [id number]-[id number] ANSI-Medicare Part B [id number] ANSI-Commercial [id number] ANSI-Commercial [id number] ANSI-Commercial [id number] ANSI-Medicare Part B [id number] ANSI-Commercial [id number] [id number]-5c4a-480r-9355-[id number] ANSI-Medicare Part B [id number] ANSI-Commercial [id number]-e47f-[id number] [id number]-l90r-[id number] ANSI-Medicare Part B [id number] ANSI-Commercial [id number]-4t5q-[id number] e9u5f7qo-7e3v-05vs-[id number] ANSI-Commercial [id number]-[id number] ANSI-Medicare Part B [id number] ANSI-Commercial [id number]-[id number]-z76y-402o-[id number] ANSI-Commercial 51489c52-j4yc-9t5m-2z30-bubc0qkc36nl [id number]-f4qd-4n4z-3h71-oaks4rrn64yu ANSI-Commercial [id number]-[id number]-uz68-[id number] ANSI-Medicare Part B [id number] ANSI-Commercial [id number] ANSI-Commercial [id number]-qm8w-[id number] [id number]-eg1i-[id number] ANSI-Commercial t071ip35-7880-6d40-[id number] g707od03-0208-9p59-[id number] ANSI-Medicare Part B [id number] ANSI-Commercial sae186h6-88zy-[id number] [id number]-15n8-21e4-2325k3z3xfqe ANSI-Medicare Part B [id number] ANSI-Commercial [id number]-py79-4pu6-4dnj-[id number] ANSI-Medicare Part B [id number] ANSI-Commercial [id number] ANSI-Commercial [id number]-[id number]-e79w-[id number] ANSI-Commercial [id number]-[id number] ANSI-Commercial [id number] ANSI-Medicare Part B [id number] [employer] [id number] SP [id number] [employer] [id number] SP [id number] [employer] Self Medicare - NGS Medicare Primary Self [employer] Medigap Part B Self Medicare Medicare Primary Self [facility] [id number] MEDICARE PART A-CLINIC [id number] 18 [id number] [employer] -O/P [id number] 18 [id number] MEDICARE PART B-O/P UNAVAILABLE UNAVAILABLE [id number] Problems, Conditions, and Diagnoses Code Display Name Description Problem Type Effective Dates Data Source(s) F03.90 Unspecified dementia without behavioral disturbance UNSPECIFIED DEMENTIA WITHOUT BEHAVIORAL DISTURBANCE Diagnosis 06/06/2020 10:30:00 AM [facility] Surgeries/Procedures Procedure Description Date Indications Data Source(s) Hospital outpatient clinic visit for assessment and ma nagement of a patient Hospital Outpatient Clinic Visit 06/06/2020 12:00:00 AM [facility] THYROID STIMULATING HORMONE TSH ASSAY THYROID STIM HORMONE 0 06/06/2020 12:00:00 AM [facility] CYANOCOBALAMIN VITAMIN B-12 VITAMIN B-12 06/06/2020 12:00:00 AM [facility] COLLECTION VENOUS BLOOD VENIPUNCTURE ROUTINE VENIPUNCTURE 12:00:00 AM [facility] BLOOD COUNT COMPLETE AUTO&AUTO DIFRNTL WBC COUNT COMPLETE CB C W/AUTO DIFF WBC 06/06/2020 12:00:00 AM [facility] COMPREHENSIVE METABOLIC PANEL COMPREHEN METABOLIC PANEL 11/2020 12:00:00 AM [facility] Office Visit, Est Pt., Level 2 FC 08/14/2019 12:00:00 AM EDT eCW1 ([facility]) Office Visit, Est Pt., Level 4 PC 08/14/2019 12:00:00 AM EDT eCW1 ([facility]) Results ID Date Data Source [id number] 06/06/2020 03:07:00 PM [facility] Name Value Range Interpretation Code Description Data Rocio rce(s) Supporting Document(s) Sodium 137 mmol/L 137-145 Normal (applies to non-numeric resul ts) [facility] Potassium 3.5-5.1 Normal (applies to non-numeric resul ts) [facility] Chloride 103 mmol/L 98-112 Normal (applies to non-numeric resul ts) [facility] Carbon Dioxide CO2 22.0-33.0 Normal (applies to non-numer ic results) [facility] Anion Gap 4.0-11.0 Normal (applies to non-numeric resul ts) [facility] BUN 22 mg/dL 7-17 Above high normal [facility] Creatinine 0.70-1.20 Normal (applies to non-numeric resul ts) [facility] GFR 72 mL/min >60 Normal (applies to non-numeric resul ts) [facility] Result based on MDRD formula. Glucose Level 98 mg/dL 74-99 Normal (applies to non-numeric re sults) [facility] The reference range is only applicable w hen fasting. Calcium-Uncorrected 8.4-10.2 Normal (applies to non-nume chelsie results) [facility] Corrected Calcium 8.4-10.2 Normal (applies to non-numeri c results) [facility] Bilirubin,Total 0.2-1.3 Normal (applies to non-numeric results) [facility] SGOT(AST) 13 U/L 14-[address] [facility] SGPT(ALT) 16 U/L 9-52 Normal (applies to non-numeric resul ts) [facility] Alkaline Phosphatase 83 U/L 38-126 Normal (applies to non-num rony results) [facility] can increase Alkaline Phosp le vels up to 2 times the normal adult value. Normal values for children and adolescents are 2 to 3 times the normal adult value. Total Protein 6.3-8.2 Normal (applies to non-numeric re sults) [facility] Albumin 3.5-5.0 Normal (applies to non-numeric resul ts) [facility] ID Date Data Source [id number] 06/06/2020 03:07:00 PM EST [facility] Name Value Range Interpretation Code Description Data Rocio rce(s) Supporting Document(s) Vitamin B12 481 pg/mL 193-986 Normal (applies to non-numeric resu lts) [facility] ID Date Data Source [id number] 06/06/2020 03:08:00 PM EST [facility] Name Value Range Interpretation Code Description Data Rocio rce(s) Supporting Document(s) Thyroid Stimulate Hormone TSH 0.358-3.740 No rmal (applies to non-numeric results) [facility] ID Date Data Source [id number] 06/06/2020 01:13:00 PM [facility] Name Value Range Interpretation Code Description Data Rocio rce(s) Supporting Document(s) White Blood Count 4.8-10.8 Normal (applies to non-numeri c results) [facility] Red Blood Count 3.68-5.22 Normal (applies to non-numeric results) [facility] Hemoglobin 11.2-15.7 Normal (applies to non-numeric resul ts) [facility] Hematocrit 34.1-44.9 Normal (applies to non-numeric resul ts) [facility] Mean Corpuscular Volume 81-99 Normal (applies to non- numeric results) [facility] Mean Corpuscular Hemoglobin 27.0-33.0 Normal (appli es to non-numeric results) [facility] Mean Corpuscular HGB Conc 32.0-36.0 Normal (applies to no n-numeric results) [facility] Red Cell Distribution Width 11.5-14.5 Normal (appli es to non-numeric results) [facility] Platelet Count 191 X10 3/uL 130-450 Normal (applies to non-numeric results) [facility] Mean Platelet Volume 9.5-12.7 Normal (applies to non-num rony results) [facility] Imm Grans% (AUTO) 0 % 0-2 Normal (applies to non-numeri c results) [facility] Neutrophils % (AUTO) 50 % 40-75 Normal (applies to non-num rony results) [facility] Lymphocytes % (AUTO) 35 % 21-46 Normal (applies to non-num rony results) [facility] Monocytes % (AUTO) 11 % 5-12 Normal (applies to non-numer ic results) [facility] Eosinophils % (AUTO) 2 % 1-5 Normal (applies to non-num rony results) [facility] Basophils % (AUTO) 1 % 0-1 Normal (applies to non-numer ic results) [facility] Imm Grans# (AUTO) 0.0-0.5 Normal (applies to non-numeri c results) [facility] Neutrophils # (AUTO) 1.5-8.1 Normal (applies to non-num rony results) [facility] Lymphocytes # (AUTO) 1.0-3.1 Normal (applies to non-num rony results) [facility] Monocytes # (AUTO) 0.2-1.3 Normal (applies to non-numer ic results) [facility] Eosinophils# (AUTO) 0.0-0.5 Normal (applies to non-nume chelsie results) [facility] Basophils # (AUTO) 0.0-0.1 Normal (applies to non-numer ic results) [facility] Procedure Social History Code Duration Value Status Description Data Source(s ) Smoking 08/14/2019 12:00:00 AM EDT Never Smoker completed Never S moker eCW1 ([facility]) Smoking 08/14/2019 12:00:00 AM EDT Never Smoker completed Never S moker eCW1 ([facility]) Smoking 08/14/2019 12:00:00 AM EDT Never Smoker completed Never S moker eCW1 ([facility]) Smoking 08/14/2019 12:00:00 AM EDT Never Smoker completed Never S moker eCW1 ([facility]) Smoking 08/14/2019 12:00:00 AM EDT Never Smoker completed Never S moker eCW1 ([facility]) Smoking 08/14/2019 12:00:00 AM EDT Never Smoker completed Never S moker eCW1 ([facility]) Smoking 08/14/2019 12:00:00 AM EDT Never Smoker completed Never S moker eCW1 ([facility]) Vital Signs ID Date Data Source UNK Name Value Range Interpretation Code Description Data Source(s) Diastolic blood pressure 60 mm[Hg] 60 mm[Hg] eCW1 ([facility]) Systolic blood pressure 134 mm[Hg] 134 mm[Hg] e CW1 ([facility]) Body temperature 98.5 [degF] 98.5 [degF] eCW1 ( [facility]) Respiratory rate 16 /min 16 /min eCW1 ([facility]) Heart rate 60 /min 60 /min eCW1 ([facility]) Body mass index (BMI) [Ratio] 29.10 kg/m2 29.10 kg/m2 eCW1 ([facility]) Body height 60 [in_us] 60 [in_us] eCW1 ([facility]) Body weight Measured 149 [lb_av] 149 [lb_av] eC W1 ([facility])
[2020-07-01] MEDS ORDERED: FLUORESCEIN OPHTH 1 MG STRIP OU ONE (11:15)
--- OUTSIDE RECORDS SUMMARY | 2020-07-01 12:10 | CCD ---
Author Author [facility] Organization [facility] Address Unknown Phone Unavailable Care Team Providers Care Traffic Signal Supervisor Maintenance Name Role Phone Jessica Valle MD Unavailable [phone] Malek, Jessica Mccracken MD Unavailable [phone] Malek, Jessica Mccracken MD Unavailable [phone] Malek, Jessica Mccracken MD Unavailable [phone] Malek, Jessica Mccracken MD Unavailable [phone] Malek, Jessica Mccracken MD Unavailable [phone] Malek, Jessica Mccracken MD Unavailable [phone] Malek, Jessica Mccracken MD Unavailable [phone] Malek, Jessica Mccracken MD Unavailable [phone] Malek, Jessica Mccracken MD Unavailable [phone] Malek, Jessica Mccracken MD Unavailable [phone] Malek, Jessica Mccracken MD Unavailable [phone] Malek, Jessica Mccracken MD Unavailable [phone] Malek, Jessica Mccracken MD Unavailable Unavailable Re-disclosure [...] is protected by Article 27-F of the [facility] Public Health law. If you continue you may have access to information: Regarding HIV / AIDS; Provided by facilities licensed or operated by the [facility] Office of Mental Health; or Provided by the [facility] Office for People With Developmental Disabilities. If such information is present, then the following [facility] mandated warning applies: This information has been [...] law may result in a fine or mcfp sentence or both. A general authorization for [...] Date Indications Data Source(s ) Unknown [address] [facility] [address] 06/20/2020 12:00:00 AM EST eCW1 ([facility]) Outpatient Attender: Kaykay Valle MDAttender: Kaykay Valle MD CPSCAORT-CPSCANEU 06/06/2020 10:30:00 AM EST - 06/06/2020 10:31:00 AM EST F03.90 [facility] F03.90 Patient discharged. Unknown [address] [facility] [address] 05/01/2020 12:00:00 AM EST eCW1 ([facility]) [place] [address] [facility] [address] 05/01/2020 12:00:00 AM EST eCW1 ([facility]) [place] [address] [facility] [address] 04/08/2020 12:00:00 AM EST eCW1 ([facility]) [facility] [place] [address] [facility] [address] 02/15/2020 12:00:00 AM EDT eCW1 ([facility]) [place] [address] [facility] [address] 11/15/2019 12:00:00 AM EDT eCW1 ([facility]) [place] [address] [facility] [address] 11/13/2019 12:00:00 AM EDT eCW1 ([facility]) [place] [address] [facility] [address] 11/13/2019 12:00:00 AM EDT eCW1 ([facility]) [facility] [place] [address] [facility] [address] 10/26/2019 12:00:00 AM EDT eCW1 [facility] [address] [facility] [address] 10/12/2019 12:00:00 AM EDT eCW1 ([facility]) [facility] [place] [address] [facility] [address] 09/08/2019 12:00:00 AM EDT [facility]CW1 [facility] [address] [facility] [address] 08/14/2019 12:00:00 AM EDT eCW1 ([facility]) [facility] [place] [address] [facility] [address] 06/28/2019 12:00:00 AM EST eCW1 ([facility]) [facility] [place] [address] [facility] [address] 06/28/2019 12:00:00 AM EST eCW1 ([facility]) Immunizations Vaccine Date Status Description Data [...] type / Coverage type Policy ID Covered alliance party ID Covered alliance party's relationship to paige Policy Paige Plan Information R [facility] [id number] SP [id number] MEDICARE [id number] SP [id number] P70 UMR [id number] S [id number] MEDICARE [id number] S [id number] P70 UMR O [id number] S [id number] MEDICARE C [id number] S [id number] P[address] [facility] [id number] SP [id number] MEDICARE [id number] SP [id number] A Umr (pr) Medigap Part B [id number] Self [id number] Medicare [place] Medicare Primary [id number] Self [id number] ANSI-Commercial [id number] ANSI-Medicare Part B [id number] ANSI-Commercial [id number] [facility] Commercial [id number] Self [id number] Medicare Part B Medicare Primary [id number] Self [id number] ANSI-Commercial [id number] ANSI-Medicare Part B [id number] ANSI-Commercial [id number] ANSI-Commercial [id number] ANSI-Medicare Part B [id number] ANSI-Commercial [id number] ANSI-Medicare Part B [id number] ANSI-Commercial [id number] ANSI-Commercial [id number] ANSI-Medicare Part B [id number] ANSI-Commercial [id number] [id number] ANSI-Commercial [id number] MEDICARE [id number] A [facility] [id number] ANSI-Commercial [id number] ANSI-Medicare Part B [id number] ANSI-Commercial [id number] ANSI-Commercial [id number] ANSI-Commercial [id number] ANSI-Medicare Part B [id number] ANSI-Commercial [id number]-[id number] ANSI-Medicare Part B [id number] ANSI-Commercial [id number]-[id number] ANSI-Medicare Part B [id number] ANSI-Commercial [id number]-[id number] [id number]-7w5w-[id number] ANSI-Commercial [id number] ANSI-Medicare Part B [id number] ANSI-Commercial [id number]-[id number]-z90o-020q-[id number] ANSI-Commercial [id number]-k3jd-7z2l-[id number]-sclz5qim23wv [id number]-v3ny-5x7n-[id number]-ctce4xap27ha ANSI-Commercial [id number]-[id number] ANSI-Medicare Part B [id number] ANSI-Commercial [id number] ANSI-Commercial [id number]-[id number]-[id number] ANSI-Commercial [id number]-[id number] ANSI-Medicare Part B [id number] ANSI-Commercial [id number] [id number] ANSI-Medicare Part B [id number] ANSI-Commercial [id number] ANSI-Medicare Part B [id number] ANSI-Commercial [id number] ANSI-Commercial [id number]-[id number] ANSI-Commercial [id number]-[id number] ANSI-Commercial [id number] ANSI-Medicare Part B [id number] [employer] [id number] SP [id number] [employer] [id number] SP [id number] [employer] Self Medicare - NGS Medicare Primary Self [employer] Medigap Part B Self Medicare Medicare Primary Self [facility] [id number] MEDICARE PART A-CLINIC [id number] 18 [id number] [employer] -O/P [id number] 18 [id number] MEDICARE PART B-O/P UNAVAILABLE UNAVAILABLE [id number] Problems, Conditions, and Diagnoses Code Display Name Description Problem Type Effective Dates Data Source(s) F03.90 Unspecified dementia without behavioral disturbance UNSPECIFIED DEMENTIA WITHOUT BEHAVIORAL DISTURBANCE Diagnosis 06/06/2020 10:30:00 AM Health system Surgeries/Procedures Procedure Description Date Indications Data Source(s) Hospital outpatient clinic visit for assessment and ma nagement of a patient Hospital Outpatient Clinic Visit 06/06/2020 12:00:00 AM [facility] THYROID STIMULATING HORMONE TSH ASSAY THYROID STIM HORMONE 0 06/06/2020 12:00:00 AM [facility] CYANOCOBALAMIN VITAMIN B-12 VITAMIN B-12 06/06/2020 12:00:00 AM [facility] COLLECTION VENOUS BLOOD VENIPUNCTURE ROUTINE VENIPUNCTURE 12:00:00 AM [facility] BLOOD COUNT COMPLETE AUTO&AUTO DIFRNTL WBC COUNT COMPLETE CB C W/AUTO DIFF WBC 06/06/2020 12:00:00 AM [facility] COMPREHENSIVE METABOLIC PANEL COMPREHEN METABOLIC PANEL 11/2020 12:00:00 AM [facility] Office Visit, Est Pt., Level 2 FC 08/14/2019 12:00:00 AM EDT eCW1 ([facility]) Office Visit, Est Pt., Level 4 PC 08/14/2019 12:00:00 AM EDT eCW1 ([facility]) Results ID Date Data Source [id number] 06/06/2020 03:07:00 PM [facility] Name Value Range Interpretation Code Description Data Rocio rce(s) Supporting Document(s) Sodium 137 mmol/L 137-145 Normal (applies to non-numeric resul ts) [facility] Potassium 3.5-5.1 Normal (applies to non-numeric resul ts) [facility] Chloride 103 mmol/L 98-112 Normal (applies to non-numeric resul ts) [facility] Carbon Dioxide CO2 22.0-33.0 Normal (applies to non-numer ic results) [facility] Anion Gap 4.0-11.0 Normal (applies to non-numeric resul ts) [facility] BUN 22 mg/dL 7-17 Above high normal [facility] Creatinine 0.70-1.20 Normal (applies to non-numeric resul ts) [facility] GFR 72 mL/min >60 Normal (applies to non-numeric resul ts) [facility] Result based on MDRD formula. Glucose Level 98 mg/dL 74-99 Normal (applies to non-numeric re sults) [facility] The reference range is only applicable w hen fasting. Calcium-Uncorrected 8.4-10.2 Normal (applies to non-nume chelsie results) [facility] Corrected Calcium 8.4-10.2 Normal (applies to non-numeri c results) [facility] Bilirubin,Total 0.2-1.3 Normal (applies to non-numeric results) [facility] SGOT(AST) 13 U/L 14-36 Below low normal [facility] SGPT(ALT) 16 U/L 9-52 Normal (applies to non-numeric resul ts) [facility] Alkaline Phosphatase 83 U/L 38-126 Normal (applies to non-num rony results) [facility] can increase Alkaline Phosp le vels up to 2 times the normal adult value. Normal values for children and adolescents are 2 to 3 times the normal adult value. Total Protein 6.3-8.2 Normal (applies to non-numeric re sults) [facility] Albumin 3.5-5.0 Normal (applies to non-numeric resul ts) [facility] ID Date Data Source [id number] 06/06/2020 03:07:00 PM EST [facility] Name Value Range Interpretation Code Description Data Rocio rce(s) Supporting Document(s) Vitamin B12 481 pg/mL 193-986 Normal (applies to non-numeric resu lts) [facility] ID Date Data Source [id number] 06/06/2020 03:08:00 PM EST [facility] Name Value Range Interpretation Code Description Data Rocio rce(s) Supporting Document(s) Thyroid Stimulate Hormone TSH 0.358-3.740 No rmal (applies to non-numeric results) [facility] ID Date Data Source [id number] 06/06/2020 01:13:00 PM [facility] Name Value Range Interpretation Code Description Data Rocio rce(s) Supporting Document(s) White Blood Count 4.8-10.8 Normal (applies to non-numeri c results) [facility] Red Blood Count 3.68-5.22 Normal (applies to non-numeric results) [facility] Hemoglobin 11.2-15.7 Normal (applies to non-numeric resul ts) [facility] Hematocrit 34.1-44.9 Normal (applies to non-numeric resul ts) [facility] Mean Corpuscular Volume 81-99 Normal (applies to non- numeric results) [facility] Mean Corpuscular Hemoglobin 27.0-33.0 Normal (appli es to non-numeric results) [facility] Mean Corpuscular HGB Conc 32.0-36.0 Normal (applies to no n-numeric results) [facility] Red Cell Distribution Width 11.5-14.5 Normal (appli es to non-numeric results) [facility] Platelet Count 191 X10 3/uL 130-450 Normal (applies to non-numeric results) [facility] Mean Platelet Volume 9.5-12.7 Normal (applies to non-num rony results) [facility] Imm Grans% (AUTO) 0 % 0-2 Normal (applies to non-numeri c results) [facility] Neutrophils % (AUTO) 50 % 40-75 Normal (applies to non-num rony results) [facility] Lymphocytes % (AUTO) 35 % 21-46 Normal (applies to non-num rony results) [facility] Monocytes % (AUTO) 11 % 5-12 Normal (applies to non-numer ic results) [facility] Eosinophils % (AUTO) 2 % 1-5 Normal (applies to non-num rony results) [facility] Basophils % (AUTO) 1 % 0-1 Normal (applies to non-numer ic results) [facility] Imm Grans# (AUTO) 0.0-0.5 Normal (applies to non-numeri c results) [facility] Neutrophils # (AUTO) 1.5-8.1 Normal (applies to non-num rony results) [facility] Lymphocytes # (AUTO) 1.0-3.1 Normal (applies to non-num rony results) [facility] Monocytes # (AUTO) 0.2-1.3 Normal (applies to non-numer ic results) [facility] Eosinophils# (AUTO) 0.0-0.5 Normal (applies to non-nume chelsie results) [facility] Basophils # (AUTO) 0.0-0.1 Normal (applies to non-numer ic results) [facility] Procedure Social History Code Duration Value Status Description Data Source(s ) Smoking 08/14/2019 12:00:00 AM EDT Never Smoker completed Never S moker eCW1 ([facility]) Smoking 08/14/2019 12:00:00 AM EDT Never Smoker completed Never S moker eCW1 ([facility]) Smoking 08/14/2019 12:00:00 AM EDT Never Smoker completed Never S moker eCW1 ([facility]) Smoking 08/14/2019 12:00:00 AM EDT Never Smoker completed Never S moker eCW1 ([facility]) Smoking 08/14/2019 12:00:00 AM EDT Never Smoker completed Never S moker eCW1 ([facility]) Smoking 08/14/2019 12:00:00 AM EDT Never Smoker completed Never S moker eCW1 ([facility]) Smoking 08/14/2019 12:00:00 AM EDT Never Smoker completed Never S moker eCW1 ([facility]) Vital Signs ID Date Data Source UNK Name Value Range Interpretation Code Description Data Source(s) Diastolic blood pressure 60 mm[Hg] 60 mm[Hg] eCW1 ([facility]) Systolic blood pressure 134 mm[Hg] 134 mm[Hg] e CW1 ([facility]) Body temperature 98.5 [degF] 98.5 [degF] eCW1 ( [facility]) Respiratory rate 16 /min 16 /min eCW1 ([facility]) Heart rate 60 /min 60 /min eCW1 ([facility]) Body mass index (BMI) [Ratio] 29.10 kg/m2 29.10 kg/m2 eCW1 ([facility]) Body height 60 [in_us] 60 [in_us] eCW1 ([facility]) Body weight Measured 149 [lb_av] 149 [lb_av] eC W1 ([facility])
[2020-07-01 12:11] LABS: BASO # 0.1 10^3/uL (0.0-0.2); BASO % 0.7 % (0.0-1.0); EOS # 0.1 10^3/uL (0.0-0.5); EOS % 1.1 % (0.0-3.0); HEMATOCRIT 45.6 % (36.0-47.0); HEMOGLOBIN 14.9 g/dl (12.0-15.5); LYMPH # 2.2 10^3/uL (1.5-5.0); MEAN CORPUSCULAR HEMOGLOBIN 29.3 pg (27.0-33.0); MEAN CORPUSCULAR HGB CONC 32.7 g/dl (32.0-36.5); MEAN CORPUSCULAR VOLUME 89.8 fl (80.0-96.0); MONO # 1.3 10^3/uL (0.0-0.8); MONO % 11.3 % (0.0-5.0); NEUTROPHILS # 7.7 10^3/uL (1.5-8.5); NEUTROPHILS % 67.5 % (36.0-66.0); PLATELET COUNT, AUTOMATED 234 10^3/uL (150-450); RED BLOOD COUNT 5.08 10^6/uL (4.00-5.40); WHITE BLOOD COUNT 11.4 10^3/uL (4.0-10.0)
[2020-07-01] MEDS ORDERED: diphenhydrAMINE 50MG/ML VIAL (J1200) IV ONE (12:15)
[2020-07-01] MEDS ORDERED: ceFAZolin SOD 2 GM in IV 1 EA IV ONE (12:30)
[2020-07-01 12:32] LABS: ERYTHROCYTE SEDIMENTATION RATE 30 mm/hr (0-30)
[2020-07-01 12:58] LABS: ALBUMIN 3.8 GM/DL (3.2-5.2); BILIRUBIN,DIRECT 0.3 MG/DL (0.0-0.2); C REACTIVE PROTEIN QUANTITATIV 3.76 MG/DL (0.00-0.30); TOTAL PROTEIN 7.6 GM/DL (6.4-8.2)
[2020-07-01] MEDS ORDERED: LISI-538 PO (13:30)
[2020-07-01] MEDS ORDERED: CHLO125TA PO (13:30)
[2020-07-01] MEDS ORDERED: DONE10TA90 PO (13:35)
[2020-07-01 15:11] LABS: RSV AMPLIFICATION NEGATIVE (NEGATIVE)
[2020-07-01] MEDS ORDERED: PRED20TA PO (15:39)
[2020-07-01] MEDS ORDERED: DOXY100C37 PO (15:39)
[2020-07-01 15:57] VITALS: BP 152/81
--- NOTE | 2020-07-01 16:23 | CR.PDOC ---
General Date of Consultation: Jul 01, 2020 Consultation REASON FOR CONSULTATION/CHIEF COMPLAINT: Facial cellulitis HISTORY OF PRESENT ILLNESS: 74 year old female presented to ED for a facial rash . The rash started 7 days ago from deacon forehead and then proceeded downwards and worsened dramatically in the past 2 days. involving the whole of the face below the eyes but not the ears or behind the ears. It is uniform bilaterally, erythematous, crusted with some pustules in it. itchy. No rash anywhere else, no involvement of the oral cavity. No fever or chills, no abdominal pain or nausea or vomiting or diarrhea, no chest pain or sob, no leg swelling, no cough or phlegm or sore throat. No difficulty in vision. Patient has been applying b enadyl ointment and clobetasol ointment and taking oral benadyl with no improvement. ALLERGIES: Please see below. HOME MEDICATIONS: Please see below. PAST MEDICAL HISTORY: Dementia HTN HLD Hypothyroid H/O ZANDRA Back surgery for scoliosis Histoplasmosis --lump in neck Tonsillectomy FAMILY HISTORY: FATHER: 71 YRS, [place] MOTHER: 81 YRS, MALIGNANT MASS IN ABDOMEN SIBLINGS: ALIVE 65 YRS, HX MELANOMA SOCIAL HISTORY: Marital status and/or living arrangements: lives with Non smoker, denies alcohol abuse. REVIEW OF SYSTEMS: all 11 point review of systems are negative except as those mentioned in HPI PHYSICAL EXAMINATION: VITAL SIGNS: Please see below. GENERAL APPEARANCE: Awake , alert pleasant HEENT: NC/AT, moist mucous membranes, injected eyes, facial rash RESPIRATORY: clear to auscultation CARDIOVASCULAR: S1, S2 regular, Systolic murmur present. ABDOMEN: Soft Nontender, bowel sounds normal EXTREMITIES: No edema, no rash. LABORATORY DATA: Please see below. ASSESSMENT/PLAN: Facial rash: does not look like facial cellulitis. Have consulted derm. Patient is being sent to Derm clinic now. If derm thinks patietn needs to be admitted will then do a direct admit. Hypertension: continue home meds. Dementia on donepezil HLD: continue statin Hypothyroid: continue Synthroid. Vital Signs/I&O Vital Signs Date Time Temp Pulse Resp B/P (MAP) Pulse Ox O2 Delivery O2 Flow Rate FiO2 07/01/20 15:57 97.4 90 18 152/81 (104) 95 Room Air Laboratory Data Labs 24H Laboratory Tests 2 07/01/20 11:59: Immature Granulocyte % (Auto) 0.4, Neutrophils (%) (Auto) 67.5H, Lymphocytes (%) (Auto) 19.0L, Monocytes (%) (Auto) 11.3H, Eosinophils (%) (Auto) 1.1, Basophils (%) (Auto) 0.7, Neutrophils # (Auto) 7.7, Lymphocytes # (Auto) 2.2, Monocytes # (Auto) 1.3H, Eosinophils # (Auto) 0.1, Basophils # (Auto) 0.1, Nucleated Red Blood Cells % (auto) 0.0, Erythrocyte Sedimentation Rate 30, Lactic Acid Level 0.9, Total Bilirubin 1.0, Direct Bilirubin 0.3H, Aspartate Amino Transf (AST/SGOT) 11, Alanine Aminotransferase (ALT/SGPT) 16, Alkaline Phosphatase 93, C-Reactive Protein, Quantitative 3.76H, Total Protein 7.6, Albumin 3.8, A lbumin/Globulin Ratio 1.0L 07/01/20 12:00: POC Glucose (Misc Panel) 99, POC Sodium (Misc Panel) 134L, POC Potassium (Misc Panel) 4.0, POC Chloride (Misc Panel) 96L, POC Total CO2 (Misc Panel) 29.0H, POC Blood Urea Nitrogen (Misc Panel 18, POC Ionized Calcium (Misc Panel) 4.7, POC Creatinine (Misc Panel) 0.7, POC Hematocrit (Misc Panel) 47.0 07/01/20 13:51: Coronavirus (COVID-19)(PCR) NEGATIVE, Influenza Type A (RT-PCR) NEGATIVE, Influenza Type B (RT-PCR) NEGATIVE, Respiratory Syncytial Virus (PCR) NEGATIVE CBC/BMP Laboratory Tests 07/01/20 11:59 Microbiology Microbiology 07/01/20 Blood Culture, Received Pending Allergies Coded Allergies: No Known Allergies (Unverified , 12/21/18) Home Medications Scheduled Carvedilol (Carvedilol) 6.25 Mg Tablet, 6.25 MG PO BID, (Reported) Chlorthalidone (Chlorthalidone) 25 Mg Tablet, 12.5 MG PO DAILY, (Reported) Donepezil HCl (Donepezil HCl) 10 Mg Tablet, 10 MG PO QPM, (Reported) Doxycycline Monohydrate (Doxycycline Monohydrate) 100 Mg Capsule, 100 MG PO Q12H, #20 Levothyroxine Sodium (Levothyroxine Sodium) 75 Mcg Tablet, 75 MCG PO DAILY, (Reported) Lisinopril (Lisinopril) 20 Mg Tablet, 20 MG PO DAILY, (Reported) Prednisone (Prednisone) 20 Mg Tablet, 20 MG PO ASDIRECTED, #20 3 po day 1-3; 2 po day 4-7; 1 po day 8-10 Rosuvastatin Calcium (Crestor) 5 Mg Tablet, 5 MG PO QPM, (Reported) SUBHASH SHUKLA MD Jul 01, 2020 16:23
== END 2020-07-01 15:58 | disposition home or self-care (01) ==
LOC: M ED 10:01
DX: L08.0 Pyoderma (principal); I10 Essential (primary) hypertension; E78.5 Hyperlipidemia, unspecified; E03.9 Hypothyroidism, unspecified; F03.90 Unspecified dementia, unspecified severity, without behavioral disturbance, psychotic disturbance, mood disturbance, and anxiety; Z79.899 Other long term (current) drug therapy
CPT/HCPCS: 80047; 80076; 83605; 85025; 85652; 86140; 87040; 87070; 87077; 87186; 87631; 87798; 96365; 96375; 99284; J0690; J1200

== ENCOUNTER → 2020-07-01 | Outpatient (REF) | payer MEDICARE, OTHER ==
[~2020-07-01] MED LIST changes: +LISI-538 PO; -LISI20TA33 PO
== END ==
LOC: M LAB REF 16:56
PROVIDERS: ATTEND Physician Assistant
DX: L08.0 Pyoderma (principal)

== ENCOUNTER → 2020-08-23 | Outpatient (CLI) | payer MEDICARE, OTHER ==
[~2020-08-23] MED LIST changes: +CHLO125TA PO; +DONE10TA90 PO; +DOXY100C37 PO; +LISI20TA33 PO; +PRED20TA PO
[2020-08-23 11:40] LABS: HEMATOCRIT 40.4 % (36.0-47.0); MEAN CORPUSCULAR HEMOGLOBIN 29.9 pg (27.0-33.0); MEAN CORPUSCULAR HGB CONC 32.2 g/dl (32.0-36.5); MEAN CORPUSCULAR VOLUME 92.9 fl (80.0-96.0); PLATELET COUNT, AUTOMATED 200 10^3/uL (150-450); RED BLOOD COUNT 4.35 10^6/uL (4.00-5.40); WHITE BLOOD COUNT 8.4 10^3/uL (4.0-10.0)
[2020-08-23 11:41] LABS: BASO # 0.1 10^3/uL (0.0-0.2); BASO % 1.1 % (0.0-1.0); EOS # 0.2 10^3/uL (0.0-0.5); LYMPH # 2.7 10^3/uL (1.5-5.0); LYMPH % 32.3 % (24.0-44.0); MONO # 0.9 10^3/uL (0.0-0.8); MONO % 11.3 % (2.0-8.0); NEUTROPHILS # 4.4 10^3/uL (1.5-8.5); NEUTROPHILS % 52.9 % (36.0-66.0)
[2020-08-23 12:18] LABS: ALBUMIN 3.6 GM/DL (3.2-5.2); ALT/SGPT 15 U/L (12-78); BLOOD UREA NITROGEN 24 MG/DL (7-18); CALCIUM LEVEL 9.1 MG/DL (8.8-10.2); CARBON DIOXIDE LEVEL 30 MEQ/L (21-32); CHLORIDE LEVEL 104 MEQ/L (98-107); CHOLESTEROL LEVEL 193 MG/DL (<200); CREATININE FOR GFR 0.76 MG/DL (0.55-1.30); FREE T4 1.09 NG/DL (0.76-1.46); GLOMERULAR FILTRATION RATE > 60.0 (>39); GLUCOSE, FASTING 102 MG/DL (70-100); HDL CHOLESTEROL 85 MG/DL (>40); LDL CHOLESTEROL 89 MG/DL (<100); NON-HDL-C 108 MG/DL; POTASSIUM SERUM 4.3 MEQ/L (3.5-5.1); SODIUM LEVEL 138 MEQ/L (136-145); TOTAL 25(OH) VITAMIN D 21.3 NG/ML (30.0-100.0); TOTAL PROTEIN 6.5 GM/DL (6.4-8.2); TRIGLYCERIDES LEVEL 95 MG/DL (<150)
== END ==
LOC: M WUC 08:50
PROVIDERS: ATTEND Nurse Practitioner Family
DX: I10 Essential (primary) hypertension (principal); E03.9 Hypothyroidism, unspecified; E78.2 Mixed hyperlipidemia; E55.9 Vitamin D deficiency, unspecified; Z79.899 Other long term (current) drug therapy

== ENCOUNTER → 2021-02-05 | Outpatient (CLI) | payer MEDICARE, OTHER ==
[~2021-02-05] MED LIST changes: -DOXY100C37 PO; +DOXY1CAP62 PO
[2021-02-05 16:39] LABS: FREE T4 1.04 NG/DL (0.76-1.46); THYROID STIMULATING HORMONE 11.7 uIU/ML (0.358-3.740)
== END ==
LOC: M WUC 10:52
PROVIDERS: ATTEND Nurse Practitioner Family
DX: E03.9 Hypothyroidism, unspecified (principal)

== ENCOUNTER 2021-03-01 12:18 | Emergency (ER) | payer MEDICARE, OTHER ==
--- NOTE | 2021-03-01 14:00 | REP ---
INDICATION: trauma. COMPARISON: None. TECHNIQUE: AP view of the pelvis and AP and frogleg views of the right hip are provided. Three views. FINDINGS: The bony pelvic ring is intact. 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 Degenerative sclerosis is seen in the symphysis pubis and there is some spurring in the AC joints. There is vascular calcification. A levoconvex lumbar curvature is noted. Visualized bowel gas pattern is unremarkable. AP and frogleg views of the right hip show no evidence of hip fracture. Periarticular soft tissues are unremarkable. IMPRESSION: Osteoarthritis changes as above. No traumatic abnormality noted. <Electronically signed by Tayo Oseguera > 03/01/21 [id number]
--- NOTE | 2021-03-01 14:10 | REP ---
INDICATION: trauma. COMPARISON: None. TECHNIQUE: Three views of the sacrum and coccyx. FINDINGS: Sacral giovani ower lines are intact. No sacral or coccygeal displacement is seen. Presacral soft tissues are not visibly swollen. Mild spurring is seen at the SI joints and symphysis pubis. IMPRESSION: No fracture seen. <Electronically signed by Tayo Oseguera > 03/01/21 [id number]
--- NOTE | 2021-03-01 14:58 | REP ---
INDICATION: trauma. COMPARISON: None. TECHNIQUE: Helical scanning is acquired and 4 mm axial images re-formatted. Coronal and sagittal MPR images are generated. FINDINGS: There is a marked levoconvex lumbar scoliotic curve. There is evidence of posterior element fusion throughout the lumbar spine bilaterally. Lumbar vertebral body heights are preserved. Alignment is otherwise normal. There are bridging osteophytes spine configuration. No fracture or collapse is seen. Anteriorly in the lumbar spine. Rigid no subluxation seen. Vascular calcification is noted in a normal caliber aorta. No prevertebral or perivertebral hematoma or mass is seen. No intraspinal hematoma is appreciated. IMPRESSION: Significant levoconvex thoracolumbar curvature. Rigid spine configuration with diffuse bilateral posterior element for ankylosis and bridging anterior and anterolateral osteophytes. No fracture or collapse seen. <Electronically signed by Tayo Oseguera > 03/01/21 [id number]
--- NOTE | 2021-03-01 15:25 | REP ---
INDICATION: trauma, unable to bear weight. COMPARISON: Comparison is made with today's radiographs of the right hip and pelvis. TECHNIQUE: Helical scanning is acquired and 3 mm axial images are generated. Coronal and sagittal MPR images are provided. FINDINGS: The right proximal femur is intact. No hip fracture is seen. There is tendon insertion site spurring on the greater trochanter. Osteoarthritic spurring is seen in the right hip articulation. The visualized right hemipelvis is intact. There are osteoarthritic changes at the symphysis pubis and in the right sacroiliac joint. No fracture is seen. There is a soft tissue contusion/hematoma pattern in the soft tissues just caudal to the ischium on the right side. Uterus is tipped to the right. No pelvic mass or adenopathy is appreciated. IMPRESSION: No fracture seen. Moderate osteoarthritis right hip. Soft tissue contusion/hematoma in the soft tissues just caudal to the right ischium. <Electronically signed by Tayo Oseguera > 03/01/21 [id number]
[2021-03-01 16:11] VITALS: BP 182/94
== END 2021-03-01 16:22 | disposition home or self-care (01) ==
LOC: M ED 12:18
DX: S70.01XA Contusion of right hip, initial encounter (principal); W19.XXXA Unspecified fall, initial encounter; Y92.099 Unspecified place in other non-institutional residence as the place of occurrence of the external cause; Y93.9 Activity, unspecified; Y99.9 Unspecified external cause status; M25.78 Osteophyte, vertebrae; M16.0 Bilateral primary osteoarthritis of hip; G30.9 Alzheimer's disease, unspecified; E78.5 Hyperlipidemia, unspecified; I10 Essential (primary) hypertension; G47.33 Obstructive sleep apnea (adult) (pediatric); Z87.81 Personal history of (healed) traumatic fracture; Z79.899 Other long term (current) drug therapy

== ENCOUNTER → 2022-02-03 | Outpatient (REF) | payer MEDICARE, OTHER ==
[~2022-02-03] MED LIST changes: +DOXY-443 PO; -DOXY1CAP62 PO
[2022-02-03 13:19] LABS: CALCIUM LEVEL 9.7 MG/DL (8.8-10.2); CHOLESTEROL RISK RATIO 3.746 (<5); CREATININE FOR GFR 1.07 MG/DL (0.55-1.30); GLOMERULAR FILTRATION RATE 52.8 (>39); POTASSIUM SERUM 4.3 MEQ/L (3.5-5.1); THYROID STIMULATING HORMONE 0.968 uIU/ML (0.358-3.740)
== END ==
LOC: M LABWUC 12:07
PROVIDERS: ATTEND Family Medicine
DX: E78.2 Mixed hyperlipidemia (principal); I10 Essential (primary) hypertension; E03.9 Hypothyroidism, unspecified

== ENCOUNTER → 2022-07-21 | Outpatient (CLI) | payer MEDICARE, OTHER ==
[2022-07-21 19:55] LABS: CALCIUM LEVEL 8.9 MG/DL (8.3-10.6); CREATININE FOR GFR 1.05 MG/DL (0.55-1.30); POTASSIUM SERUM 3.9 MMOL/L (3.5-5.1); THYROID STIMULATING HORMONE 0.187 uIU/ML (0.55-4.78)
== END ==
LOC: M WUC 09:28
PROVIDERS: ATTEND Family Medicine
DX: I10 Essential (primary) hypertension (principal); E03.9 Hypothyroidism, unspecified

== ENCOUNTER → 2022-09-15 | Outpatient (REF) | payer MEDICARE, OTHER | LOC: M SFHCLERA 12:20 | PROVIDERS: ATTEND Family Medicine | DX: E03.9 Hypothyroidism, unspecified (principal) ==

== ENCOUNTER 2024-07-21 08:59 | Inpatient (IN) | payer MEDICARE, OTHER ==
[~2024-07-21 08:59] MED LIST changes: +DOXY-441 PO; -DOXY-443 PO
[2024-07-21 09:11] VITALS: BP 146/67; TEMP 97.6; O2SAT 99
[2024-07-21] MEDS: LIDOCAINE 2% 5ML JELLY UROJET TOP ONE (09:25)
[2024-07-21 10:04] LABS: BASO # 0.1 10^3/uL (0.0-0.2); BASO % 1.1 % (0.0-1.0); EOS # 0.4 10^3/uL (0.0-0.5); EOS % 4.4 % (0.0-3.0); HEMATOCRIT 37.6 % (36.0-47.0); HEMOGLOBIN 12.5 g/dl (12.0-15.5); LYMPH % 20.5 % (24.0-44.0); MEAN CORPUSCULAR HEMOGLOBIN 32.1 pg (27.0-33.0); MEAN CORPUSCULAR HGB CONC 33.2 g/dl (32.0-36.5); MEAN CORPUSCULAR VOLUME 96.4 fl (80.0-96.0); MONO # 1.2 10^3/uL (0.0-0.8); MONO % 12.5 % (2.0-8.0); PLATELET COUNT, AUTOMATED 187 10^3/uL (150-450); WHITE BLOOD COUNT 9.8 10^3/uL (4.0-10.0)
[2024-07-21 10:25] LABS: ETHYL ALCOHOL (ETHANOL) < 0.003 % (0.000-0.010)
[2024-07-21 10:26] LABS: CK-MB VALUE MASS < 1.0 NG/ML (<3.6)
[2024-07-21 10:27] LABS: KETONE, URINE AUTO RFX NEGATIVE (NEGATIVE); LEUKOCYTE ESTERASE UR AUTO RFX NEGATIVE (NEGATIVE); NITRITE, URINE AUTO RFX NEGATIVE (NEGATIVE); RBC, URINE AUTO RFX 1 /HPF (0-3); SQUAM EPITHELIAL CELL UR AURFX 2 /HPF (0-6); WBC, URINE AUTO RFX 0 /HPF (0-3)
[2024-07-21 10:27] LABS: ALBUMIN 3.1 G/DL (3.2-5.2); ALKALINE PHOSPHATASE 89 U/L (35-104); ALT/SGPT 9 U/L (7.0-40); AST/SGOT 16 U/L (<34); BILIRUBIN,DIRECT 0.2 MG/DL (<0.4); BILIRUBIN,TOTAL 0.8 MG/DL (0.3-1.2); BLOOD UREA NITROGEN 14 MG/DL (9-23); CARBON DIOXIDE LEVEL 28 MMOL/L (20-31); CHLORIDE LEVEL 103 MMOL/L (98-107); CREATININE FOR GFR 0.92 MG/DL (0.55-1.30); GLOMERULAR FILTRATION RATE > 60.0 (>32); GLUCOSE, FASTING 100 MG/DL (74-106); SALICYLATE LEVEL < 3.0 MG/DL (<30); SODIUM LEVEL 138 MMOL/L (136-145); TOTAL PROTEIN 6.4 G/DL (5.7-8.2)
[2024-07-21 10:29] LABS: THYROID STIMULATING HORMONE 1.333 uIU/ML (0.55-4.78)
[2024-07-21 10:31] LABS: CPK CREATINE PHOSPHOKINASE 39 U/L (34-145); MB/CK RELATIVE INDEX 2.56 (< OR =4)
[2024-07-21 10:59] LABS: AMPHETAMINES LEVEL URINE NEGATIVE (NEGATIVE); BARBITURATES URINE NEGATIVE (NEGATIVE); BENZODIAZEPINES URINE NEGATIVE (NEGATIVE); CANNABINOIDS URINE NEGATIVE (NEGATIVE); COCAINE METABOLITE URINE NEGATIVE (NEGATIVE); METHADONE URINE NEGATIVE (NEGATIVE); OPIATES URINE NEGATIVE (NEGATIVE); PHENCYCLIDINE URINE NEGATIVE (NEGATIVE)
[2024-07-21] MEDS ORDERED: SCOPOLAMINE 1MG TRANSDERMAL PATCH TOP PRN (12:15)
[2024-07-21] MEDS ORDERED: LORazepam 2 MG/ML 1ML VIAL IV PRN (12:15)
[2024-07-21] MEDS ORDERED: MORPHINE 2 MG/ML 1ML VIAL IV PRN (12:15)
[2024-07-21] MEDS ORDERED: MED REC IN PROGRESS XX SCH (12:55)
[2024-07-21] MEDS: LORazepam 1 MG TAB PO PRN (14:02)
[2024-07-22] MEDS: MORPHINE 10MG/0.5ML ORAL CONCENTRATE SOLUTION U/D SL PRN (13:41)
[2024-07-22] MEDS: ONDANSETRON 4MG 2ML VIAL IV ONE (20:12)
[2024-07-22] MEDS: OLANZapine 2.5MG TABLET PO PRN (22:24)
[2024-07-31] MEDS: LORazepam 0.5 MG TAB PO PRN (23:06)
[2024-08-01] MEDS ORDERED: HYOSCYAMINE SULFATE 0.125 MG SUBL TABLET SL PRN (16:10)
[2024-08-01] MEDS ORDERED: ATROPINE SULFATE 1% OPHTH SOLN 2ML BTL SL PRN (16:10)
[2024-08-03] MEDS ORDERED: ATRO2DRO4 SL (12:11)
[2024-08-03] MEDS ORDERED: HYOS125TA SL (12:11)
[2024-08-03] MEDS ORDERED: ATIV1TAB10 PO (12:11)
[2024-08-03] MEDS ORDERED: MORP1SOL5 PO (12:11)
== END 2024-08-04 10:04 | disposition hospice, inpatient (51) | DRG 951 ==
LOC: EDBD 08:59 → M ED 08:59 → M ED INP 12:30 → M MSPAV 13:14
PROVIDERS: ADMIT Internal Medicine; ATTEND Student in an Organized Health Care Education/Training Program
DX: Z51.5 Encounter for palliative care (principal); R53.2 Functional quadriplegia; E46 Unspecified protein-calorie malnutrition; F03.90 Unspecified dementia, unspecified severity, without behavioral disturbance, psychotic disturbance, mood disturbance, and anxiety; I10 Essential (primary) hypertension; E03.9 Hypothyroidism, unspecified; Z74.01 Bed confinement status; E78.5 Hyperlipidemia, unspecified; M81.0 Age-related osteoporosis without current pathological fracture; G47.33 Obstructive sleep apnea (adult) (pediatric); M41.9 Scoliosis, unspecified; L89.302 Pressure ulcer of unspecified buttock, stage 2; Z66 Do not resuscitate; Z79.899 Other long term (current) drug therapy; Z79.52 Long term (current) use of systemic steroids